=== PATIENT | female | born 1950 | race Caucasian/White ===

== ENCOUNTER 2018-03-23 13:10 | Inpatient (IN) | payer MEDICARE, OTHER ==
[~2018-03-23] VITALS: Ht 160 cm; Wt 130.3 kg
--- NOTE | ~2018-03-23 | CON ---
[place], [place] REPORT OF CONSULTATION NAME: [facility]IAN DOZIER [facility] [id number] UNIT #: [id number] ROOM: 529 DOCTOR: LE BARRIOS MD BIRTHDATE: [birth year] DOS: 03/24/2018 CARDIOLOGY CONSULTATION NOTE REASON FOR CONSULTATION: Chest pain. CLINICAL HISTORY: This is a 68-year-old patient with history of hypertension, acid reflux and obesity, presented to the Emergency Room with chest pain. She was admitted to the hospital and Cardiology was consulted for further recommendations. The patient stated that she was shopping at a store and then felt that she had severe shooting pain in the midsternal area that shot towards her back and left chest. She did have some "cold sweats" and felt weak and lightheaded ____. She drove herself to the Emergency Room and was admitted to the hospital at that time. She denied any exertional chest pains at home, but she did have occasional "pounding in her chest" for a few seconds and this had been going on for about a week, but no associated dizziness or syncope. She denies any PND or orthopnea. No nausea or vomiting. No bladder or bowel symptoms. She has history of hypertension, anxiety and fibromyalgia. Her rhythm strips and EKG showed occasional ventricular ectopy. REVIEW OF SYSTEMS: Review of the 10 systems negative except as mentioned above. PAST MEDICAL HISTORY: 1. Hypertension. 2. GE acid reflux. 3. Dyslipidemia. 4. Anxiety. 5. Fibromyalgia. 6. Non-morbid obesity. PAST SURGICAL HISTORY: History of cholecystectomy. SOCIAL HISTORY: The patient is a former smoker, quit long time ago. Does not use illicit drugs. Social drinker. FAMILY HISTORY: Father at the age of 67 from heart disease. Mother at the age of 78 from colon cancer. Brother had several heart attacks at early age. ALLERGIES: The patient is allergic to IVP DYE, which causes hives, also allergy to PREDNISONE, which causes hives. HOME MEDICATIONS: Reviewed. PHYSICAL EXAMINATION: VITAL SIGNS: Blood pressure 130/90, pulse 65, respiration 16, weight 130.2 kilos, BMI F50.9. GENERAL: Alert, comfortable, in no acute distress. Denies any chest pain or shortness of breath. HEAD: Pupils are equal. No jaundice. Tongue was moist and pharynx clear. [place], [place] REPORT OF CONSULTATION NAME: JULIAN DOZIER UNIT #: [id number] ROOM: 529 DOCTOR: DENIS STAHL,LE BIRTHDATE: [birth year] NECK: Supple. No distended neck veins. No carotid bruit. CHEST: Symmetrical, nontender. LUNGS: Fair air entry bilaterally. No rales. HEART: Slightly irregular. No S3. Grade 1/6 systolic murmur. No palpable thrills. ABDOMEN: Morbidly obese, nontender. Bowel sounds normal. EXTREMITIES: Showed trace edema. Distal pulses palpable. SKIN: Warm and dry. No cyanosis. No clubbing. RECTAL: Deferred. GENITOURINARY: Deferred. NEUROLOGIC: Alert, oriented. No focal neurologic deficit. DIAGNOSTIC STUDIES: Labs and imaging studies reviewed. EKG shows sinus rhythm with PVCs and PACs. Hemoglobin 11.2, white count ____, platelet 250,000. BUN 26, creatinine 1.46, potassium 3.6. Troponins are negative x 3. Total cholesterol 173, LDL 70, HDL 89. IMPRESSION: 1. Chest pain, atypical, myocardial infarction ruled out. 2. Intermittent heart palpitations with ectopy on the monitor, both including supraventricular as well as ventricular ectopy. 3. Acute on chronic diastolic heart failure 4. Hypertension. 5. Morbid obesity. 6. Acid reflux. 7. Fibromyalgia. 8. Chronic knee and hip pains from arthritis. 9. Lancing acute renal failure. RECOMMENDATIONS: I would recommend low dose beta lauren for her symptomatic ectopy. A 2D echo was ordered and pending. I would recommend Lexiscan stress test due to her symptoms and also CAD risk factors. Due to her persistent symptoms, she needs to stay through the weekend and her echo and Lexiscan stress will be done on Monday. Risk factor modification discussed. There is no family at bedside at the time of my examination. We will hold her valsartan for her elevated creatinine and resume when her blood pressure and kidney functions are stable. [place], [place] REPORT OF CONSULTATION NAME: JULIAN DOZIER UNIT #: [id number] ROOM: 529 DOCTOR: DENIS STAHL,LE BIRTHDATE: [birth year] LE BARRIOS MD CM:CONSTR:REPORT OF CONSULTATION 1815 03/25/18 1705 interface
--- NOTE | ~2018-03-23 | EKG ---
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
--- NOTE | ~2018-03-23 | PR ---
[place], [place] PROGRESS NOTE NAME: JULIAN DOZIER UNIT #: [id number] ROOM: 529 DOCTOR: NICOLA HICKEY MD BIRTHDATE: [birth year] DOS: 03/26/2018 CARDIOLOGY PROGRESS NOTE SUBJECTIVE: The patient was seen in the Cardiology Department today, 03/26/2018 for followup of her palpitations and atypical chest pain. She was brought into the hospital after experiencing chest pain and palpitations on 03/23/2018. Her palpitations had actually started several days prior to that. In the hospital, she did demonstrate PACs and PVCs. She had no acute ST changes and cardiac biomarkers have been unremarkable. Since she has been in the hospital, she was started on beta blockers and her symptoms of palpitations and chest discomfort have resolved. A stress test is scheduled today to evaluate her further for coronary artery disease and left ventricular dysfunction. PHYSICAL EXAMINATION: VITAL SIGNS: Today, her pulse is 75 and regular, blood pressure is 142/82. She is afebrile. She weighs 130.2 kg and has a body mass index of 50.9. NECK: Supple. She has no jugular distention. Carotids are full. There are no bruits. She has no neck or supraclavicular masses. LUNGS: Respirations are unlabored. Her chest is clear to auscultation and percussion. She has no presacral edema or chest wall tenderness. HEART: Has a regular rhythm. She has a fourth heart sound, but no third heart sound. ABDOMEN: Soft and normally active without masses, organomegaly or bruits. EXTREMITIES: Showed no edema. Peripheral pulses were diminished, but palpable in the feet. IMPRESSION: 1. Palpitations due to premature atrial contractions and premature ventricular contractions. 2. Atypical chest pain, myocardial infarction ruled out. 3. Insulin resistance. 4. Obesity. 5. Essential hypertension. PLAN: We will review her echocardiogram when it is available. We will also proceed with a pharmacologic stress test. Further recommendations will depend upon the results of testing. [place], [place] PROGRESS NOTE NAME: JULIAN DOZIER UNIT #: [id number] ROOM: 529 DOCTOR: NICOLA HICKEY MD BIRTHDATE: [birth year] NICOLA HICKEY MD CM:PNTRANS [id number] NICOLA HICKEY MD 03/26/18 1521 interface
--- NOTE | ~2018-03-23 | EKG ---
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
--- NOTE | ~2018-03-23 | EKG ---
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: : 1950 Requested By: JAYLYN BRYANT Order Number: [id number] Reading MD: Javier Patel MD Measurements Intervals [place] Rate: 69 P: -9 MT: 143 QRS: -30 QRSD: 101 T: -17 QT: 396 QTc: 425 Interpretive Statements Sinus rhythm Multiple ventricular premature complexes Low voltage, precordial leads Abnormal R-wave progression, late transition Left ventricular hypertrophy Nonspecific T abnormalities, inferior leads Baseline wander in lead(s) V1 Electronically Signed On 03-26-2018 12:31:47 PST by Javier Patel MD CM:EKGRPT:ELECTROCARDIOGRAM REPORT 11 1231 JAYLYN REYNOLDSANY DRAFT REPORT JAYLYN BRYANT MD
--- NOTE | ~2018-03-23 | PR ---
[place], [place] PROGRESS NOTE NAME: JULIAN DOZIER UNIT #: [id number] ROOM: 529 DOCTOR: LE BARRIOS MD BIRTHDATE: [birth year] DOS: 03/25/2018 CARDIOLOGY FOLLOWUP VISIT NOTE REASON FOR VISIT: Chest pain and palpitations him. HISTORY OF PRESENT ILLNESS: The patient denies any further chest pains. Her heart skipping is much better since she was on low-dose beta blockers. She denies any dizziness or syncope. No edema, no orthopnea. She is anticipating to go home tomorrow. REVIEW OF SYSTEMS: Review of the 8 systems negative except as mentioned above. RHYTHM STRIPS: The patient is in sinus rhythm. PHYSICAL EXAMINATION: VITAL SIGNS: Blood pressure 136/56, pulse 65, respiratory rate is 18. GENERAL: Alert, comfortable, in no acute distress. HEAD AND NECK: Pupils are round and equal. No jaundice. Tongue was moist and pharynx clear. NECK: Supple, no distended neck veins, no carotid bruit. CHEST: Symmetrical, nontender. LUNGS: Clear to auscultation bilaterally. HEART: Regular rhythm, no S3. Grade 1/6 systolic murmur. ABDOMEN: Obese, nontender. Bowel sounds normal. EXTREMITIES: Showed trace edema. Distal pulses are palpable. SKIN: Warm and dry. No cyanosis, no clubbing. RECTAL: Deferred. MEDICATIONS AND LABORATORIES: Reviewed. IMPRESSION: 1. Chest pain, myocardial infarction ruled out. 2. Intermittent palpitations, positive due to her ventricular ectopy and supraventricular ectopy. 3. Hypertension. 4. Non-morbid obesity. 5. Chronic kidney disease. 6. Fibromyalgia. RECOMMENDATIONS: 1. Continue low dose beta lauren. 2. Lexiscan stress tomorrow to rule out ischemia due to her chest pains. 3. 2D echo to check her LV function and valvular function. 4. If the stress echo is normal, she can be discharged home tomorrow. 5. There is no family at bedside at the time of my examination. [place], [place] PROGRESS NOTE NAME: JULIAN DOZIER UNIT #: [id number] ROOM: 529 DOCTOR: LE BARRIOS MD BIRTHDATE: [birth year] LE BARRIOS MD CM:ANGELA 1342 4 LE BARRIOS MD 03/26/18 0154 interface
[~2018-03-23 13:10] MED LIST: AMBIEN5 MG PO; ANUSOL-HC2.5% R; CRESTOR10 M1 PO; CYMBALTA30 MG PO; DILTIAZEM CD240 MG PO; MEDROL DOSEPAK4 MG PO; MULTI-VITAMIN1 EACH PO; NEXIUM20 M1 PO; TRIAMTERENE & H1 CAP PO; VALSARTAN-HCTZ1 EAC1 PO; VITAMIN D-32000 UNIT PO
[2018-03-23 13:23] VITALS: BP 155/77
[2018-03-23 13:25] LABS: BASO # 0.1 10*3/uL (0.0-0.1); BASO % 1.2 % (0.0-1.0); EOS # 0.1 10*3/uL (0.0-0.4); HEMATOCRIT 37.3 % (37.0-47.0); HEMOGLOBIN 12.3 g/dl (12.0-16.0); LYMPH # 2.9 10*3/uL (1.3-4.4); LYMPH % 43.6 % (27.0-41.0); MEAN CELL VOLUME 86.9 fl (81.0-99.0); MEAN CORPUSCULAR HGB 28.7 pg (27.0-31.0); MEAN PLATELET VOLUME 9.9 fl (9.6-12.3); MONO # 0.7 10*3/uL (0.1-1.0); NEUT # 2.8 10*3/uL (2.3-7.9); PLATELET COUNT AUTOMATED 293 10*3/uL (130-400); RED BLOOD COUNT 4.29 10*6/uL (4.10-5.10); RED CELL DISTRI WIDTH 13.4 % (0-14.5); WHITE BLOOD COUNT 6.5 10*3/uL (4.8-10.8)
[2018-03-23 13:43] LABS: ALBUMIN 3.7 gm/dl (3.1-4.5); ALKALINE PHOSPHATASE 71 U/L (45-117); BUN 22 mg/dl (7-24); CHLORIDE 104 mmol/L (98-107); CREATININE 1.47 mg/dL (0.55-1.02); POTASSIUM 3.7 mmol/L (3.5-5.1); SGOT/AST 22 IU/L (3-35); SGPT/ALT 25 U/L (12-78); SODIUM 141 mmol/L (136-145)
[2018-03-23 13:45] LABS: TROPONIN I < 0.015 ng/ml (<0.045)
[2018-03-23 13:54] LABS: ACT PARTIAL THROMBO TIME 20.5 SECONDS (20.8-31.5); INTERNATIONAL NORM RATIO 0.9 (2.0-3.5)
[2018-03-23 14:30] VITALS: BP 130/80
[2018-03-23 14:33] VITALS: BP 135/52
[2018-03-23] MEDS ORDERED: MULTIPLE VITAM1 EACH PO (16:34)
[2018-03-23 20:00] VITALS: BP 127/79
[2018-03-24] VITALS: BP 139/49
[2018-03-24 06:13] LABS: BASO # 0.1 10*3/uL (0.0-0.1); BASO % 1.1 % (0.0-1.0); EOS # 0.1 10*3/uL (0.0-0.4); EOS % 2.5 % (1.0-4.0); HEMATOCRIT 35.4 % (37.0-47.0); HEMOGLOBIN 11.2 g/dl (12.0-16.0); LYMPH # 2.5 10*3/uL (1.3-4.4); LYMPH % 44.7 % (27.0-41.0); MEAN CELL VOLUME 88.3 fl (81.0-99.0); MEAN CORPUSCULAR HGB 27.9 pg (27.0-31.0); MEAN CORPUSCULAR HGB CONC 31.6 g/dl (33.0-37.0); MEAN PLATELET VOLUME 10.6 fl (9.6-12.3); MONO # 0.7 10*3/uL (0.1-1.0); MONO % 11.8 % (3.0-9.0); NEUT # 2.2 10*3/uL (2.3-7.9); NEUT % 39.7 % (47.0-73.0); PLATELET COUNT AUTOMATED 250 10*3/uL (130-400); RED BLOOD COUNT 4.01 10*6/uL (4.10-5.10); RED CELL DISTRI WIDTH 13.3 % (0-14.5); WHITE BLOOD COUNT 5.6 10*3/uL (4.8-10.8)
[2018-03-24 06:26] LABS: CREATININE 1.46 mg/dL (0.55-1.02); PHOSPHOROUS 4.5 mg/dL (2.5-4.9); POTASSIUM 3.6 mmol/L (3.5-5.1)
[2018-03-24 06:33] LABS: FREE T4 1.09 ng/dl (0.76-1.46); THYROID STIM HORMONE (HS) 1.93 uIU/ml (0.358-4.75)
[2018-03-24 06:40] LABS: ACT PARTIAL THROMBO TIME 20.4 SECONDS (20.8-31.5); INTERNATIONAL NORM RATIO 0.9 (2.0-3.5)
[2018-03-24 07:39] VITALS: BP 130/90
[2018-03-24 07:43] LABS: VITAMIN D, 25-HYDROXY 60.9 ng/mL (30-100)
[2018-03-24 12:00] VITALS: BP 141/73
[2018-03-24] MEDS ORDERED: NYSTATIN CREAM15 GM T (14:43)
[2018-03-24] MEDS ORDERED: DIOVAN160 M2 PO (14:44)
[2018-03-24 16:00] VITALS: BP 131/65
[2018-03-24] MEDS ORDERED: DILTIAZEM240 M1 PO (16:35)
[2018-03-24 20:00] VITALS: BP 132/55
[2018-03-25] VITALS: BP 136/68
[2018-03-25 12:00] VITALS: BP 136/56
[2018-03-25 16:00] VITALS: BP 121/60
[2018-03-25 20:00] VITALS: BP 133/67
[2018-03-26] VITALS: BP 140/53
[2018-03-26 08:00] VITALS: BP 142/82
[2018-03-26 13:20] VITALS: BP 145/75
[2018-03-26 16:00] VITALS: BP 141/71
[2018-03-26] MEDS ORDERED: ASPIRIN ADULT L81 M2 PO (17:04)
[2018-03-26] MEDS ORDERED: METOPROLOL SUCC25 M2 PO (17:04)
== END 2018-03-26 17:30 | disposition home or self-care (01) | DRG 311 ==
LOC: ED 13:10 → 5E 13:57 → EDHOLD 13:57 → 5E 14:14
PROVIDERS: Emergency Medicine; Internal Medicine
PROC: 4A02XM4 Measurement of Cardiac Total Activity, External Approach (ICD-10-PCS; principal; 2018-03-26)
PROC: 3E073KZ Introduction of Other Diagnostic Substance into Coronary Artery, Percutaneous Approach (ICD-10-PCS; principal; 2018-03-26)
DX: I20.9 Angina pectoris, unspecified (principal); N17.0 Acute kidney failure with tubular necrosis; R60.0 Localized edema; I49.8 Other specified cardiac arrhythmias; K21.9 Gastro-esophageal reflux disease without esophagitis; M79.7 Fibromyalgia; E88.81 Metabolic syndrome and other insulin resistance; I12.9 Hypertensive chronic kidney disease with stage 1 through stage 4 chronic kidney disease, or unspecified chronic kidney disease; N18.9 Chronic kidney disease, unspecified; M17.10 Unilateral primary osteoarthritis, unspecified knee; M16.10 Unilateral primary osteoarthritis, unspecified hip; I25.9 Chronic ischemic heart disease, unspecified; G47.00 Insomnia, unspecified; F41.9 Anxiety disorder, unspecified; E78.5 Hyperlipidemia, unspecified; R00.2 Palpitations; I49.3 Ventricular premature depolarization; E66.01 Morbid (severe) obesity due to excess calories; Z87.891 Personal history of nicotine dependence; Z82.49 Family history of ischemic heart disease and other diseases of the circulatory system; Z88.8 Allergy status to other drugs, medicaments and biological substances; Z91.041 Radiographic dye allergy status; Z90.49 Acquired absence of other specified parts of digestive tract; Z83.3 Family history of diabetes mellitus; Z80.0 Family history of malignant neoplasm of digestive organs; Z79.899 Other long term (current) drug therapy

== ENCOUNTER 2018-04-19 13:53 | Emergency (ER) | payer MEDICARE, OTHER ==
[~2018-04-19] VITALS: Ht 160 cm; Wt 132.4 kg
--- NOTE | ~2018-04-19 | EKG ---
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 : 1950 Requested By: TIP HAN PA-C Order Number: [id number] Reading MD: Mamadou Gardner MD Measurements Intervals [place] Rate: 45 P: 6 MT: 170 QRS: -18 QRSD: 102 T: -12 QT: 436 QTc: 378 Interpretive Statements Sinus bradycardia Abnormal R-wave progression, late transition Nonspecific T abnormalities, inferior leads Compared to ECG 03/23/2018 19:12:13 Sinus rhythm no longer present Ventricular premature complex(es) no longer present T-wave abnormality still present Electronically Signed On 04-19-2018 17:34:44 PST by Mamadou Gardner MD CM:EKGRPT:ELECTROCARDIOGRAM REPORT 1454 1734 TIP HAN PA-C EPIPHANY DRAFT REPORT TIP HAN PA-C
[~2018-04-19 13:53] MED LIST changes: +ASPIRIN ADULT L81 M2 PO; +DILTIAZEM240 M1 PO; +DIOVAN160 M2 PO; +METOPROLOL SUCC25 M2 PO; +MULTIPLE VITAM1 EACH PO; +NYSTATIN CREAM15 GM T
[2018-04-19 14:45] LABS: BASO # 0.1 10*3/uL (0.0-0.1); BASO % 1.3 % (0.0-1.0); EOS # 0.1 10*3/uL (0.0-0.4); EOS % 2.3 % (1.0-4.0); HEMATOCRIT 33.8 % (37.0-47.0); HEMOGLOBIN 10.9 g/dl (12.0-16.0); LYMPH # 1.8 10*3/uL (1.3-4.4); LYMPH % 44.8 % (27.0-41.0); MEAN CELL VOLUME 88.5 fl (81.0-99.0); MEAN CORPUSCULAR HGB 28.5 pg (27.0-31.0); MEAN CORPUSCULAR HGB CONC 32.2 g/dl (33.0-37.0); MEAN PLATELET VOLUME 9.8 fl (9.6-12.3); MONO # 0.5 10*3/uL (0.1-1.0); MONO % 13.6 % (3.0-9.0); NEUT # 1.5 10*3/uL (2.3-7.9); NEUT % 37.7 % (47.0-73.0); PLATELET COUNT AUTOMATED 287 10*3/uL (130-400); RED BLOOD COUNT 3.82 10*6/uL (4.10-5.10); RED CELL DISTRI WIDTH 13.3 % (0-14.5); WHITE BLOOD COUNT 3.9 10*3/uL (4.8-10.8)
[2018-04-19 15:06] LABS: ALBUMIN 3.1 gm/dl (3.1-4.5); ALKALINE PHOSPHATASE 55 U/L (45-117); BUN 14 mg/dl (7-24); CHLORIDE 104 mmol/L (98-107); CREATININE 1.02 mg/dL (0.55-1.02); POTASSIUM 3.9 mmol/L (3.5-5.1); SGOT/AST 23 IU/L (3-35); SGPT/ALT 34 U/L (12-78); SODIUM 138 mmol/L (136-145); TOTAL PROTEIN 7.1 gm/dL (6.4-8.2)
[2018-04-19 15:09] LABS: TROPONIN I < 0.015 ng/ml (<0.045)
[2018-04-19] MEDS ORDERED: TOPROL XL25 MG PO (17:21)
[2018-04-19] MEDS ORDERED: K-TAB20 MEQ PO (17:21)
[2018-04-19] MEDS ORDERED: LASIX40 MG PO (17:21)
== END 2018-04-19 17:24 | disposition home or self-care (01) ==
LOC: ED 13:53
PROVIDERS: Physician Assistant
DX: I10 Essential (primary) hypertension (principal); Z88.8 Allergy status to other drugs, medicaments and biological substances; Z79.82 Long term (current) use of aspirin; Z79.899 Other long term (current) drug therapy; Z90.49 Acquired absence of other specified parts of digestive tract; Z87.891 Personal history of nicotine dependence

== ENCOUNTER 2024-03-26 14:39 | Emergency (ER) | payer MEDICARE, OTHER ==
[~2024-03-26] VITALS: Ht 167.6 cm; Wt 131.5 kg
[~2024-03-26 14:39] MED LIST changes: +K-TAB20 MEQ PO; +LASIX40 MG PO; +TOPROL XL25 MG PO
[2024-03-26] MEDS ORDERED: CYMBALTA60 MG PO (14:54)
[2024-03-26] MEDS ORDERED: ROSUVASTATIN CA20 MG PO (14:55)
[2024-03-26] MEDS ORDERED: VALSARTAN-HCTZ1 EAC3 PO (14:55)
[2024-03-26] MEDS ORDERED: TRAZODONE50 MG PO (14:56)
[2024-03-26] MEDS ORDERED: FAMOTIDINE40 MG PO (14:56)
[2024-03-26] MEDS ORDERED: CARVEDILOL12.5 MG PO (14:56)
[2024-03-26 15:26] LABS: BASO # 0.1 10*3/uL (0.0-0.1); BASO % 0.9 % (0.0-1.0); EOS # 0.2 10*3/uL (0.0-0.4); EOS % 2.4 % (1.0-4.0); HEMATOCRIT 39.2 % (37.0-47.0); MEAN CELL VOLUME 89.7 fl (81.0-99.0); MEAN CORPUSCULAR HGB 29.3 pg (27.0-31.0); MEAN CORPUSCULAR HGB CONC 32.7 g/dl (33.0-37.0); MEAN PLATELET VOLUME 9.9 fl (9.6-12.3); MONO # 0.6 10*3/uL (0.1-1.0); MONO % 7.8 % (3.0-9.0); NEUT % 66.3 % (47.0-73.0); PLATELET COUNT AUTOMATED 260 10*3/uL (130-400); RED BLOOD COUNT 4.37 10*6/uL (4.10-5.10); RED CELL DISTRI WIDTH 13.4 % (0-14.5); WHITE BLOOD COUNT 7.6 10*3/uL (4.8-10.8)
[2024-03-26 15:36] LABS: ACT PARTIAL THROMBO TIME 23.9 SECONDS (20.0-32.1)
[2024-03-26] MEDS ORDERED: Lidocaine Hydrochloride 15 ML UDC PO STA (15:46)
[2024-03-26] MEDS ORDERED: MG-AL HYDROXIDE/SIMETICONE 30 ML UDC PO STA (15:46)
[2024-03-26] MEDS ORDERED: Dicyclomine Hydrochloride 20 MG/10 ML OSYR PO STA (15:46)
[2024-03-26 15:47] LABS: POTASSIUM 3.8 mmol/L (3.4-5.1); TOTAL PROTEIN 7.6 gm/dL (6.0-8.0)
[2024-03-26] MEDS ORDERED: PROTONIX40 MG PO (17:36)
== END 2024-03-26 17:57 | disposition home or self-care (01) ==
LOC: ED 14:39
PROVIDERS: Nurse Practitioner Family
DX: K21.9 Gastro-esophageal reflux disease without esophagitis (principal); I12.9 Hypertensive chronic kidney disease with stage 1 through stage 4 chronic kidney disease, or unspecified chronic kidney disease; N18.9 Chronic kidney disease, unspecified; Z91.041 Radiographic dye allergy status; Z88.8 Allergy status to other drugs, medicaments and biological substances; Z79.899 Other long term (current) drug therapy; Z90.49 Acquired absence of other specified parts of digestive tract; Z87.891 Personal history of nicotine dependence